=== PATIENT | male | born 1995 | race African-American/Black ===

== ENCOUNTER 2019-03-30 10:50 | Emergency (ER) | payer SELFPAY ==
[~2019-03-30] VITALS: Ht 175.3 cm; Wt 89.0 kg
[2019-03-30 14:22] VITALS: BP 120/83
== END 2019-03-30 14:24 | disposition home or self-care (01) ==
LOC: ER 10:50
DX: K64.4 Residual hemorrhoidal skin tags (principal)
CPT/HCPCS: 99282

== ENCOUNTER 2019-07-05 12:19 | Emergency (ER) | payer SELFPAY ==
[~2019-07-05] VITALS: Ht 175.3 cm; Wt 83.0 kg
[2019-07-05] MEDS ORDERED: IBUPROFEN 400MG TABLET PO ONE (15:15)
[2019-07-05] MEDS ORDERED: BACITRACIN ZINC OINT UDPKT TOP ONE (15:15)
[2019-07-05 15:17] VITALS: BP 120/62
== END 2019-07-06 03:17 | disposition home or self-care (01) ==
LOC: ER 12:19
DX: L60.0 Ingrowing nail (principal)
CPT/HCPCS: 11730; 99283

== ENCOUNTER 2019-08-13 22:25 | Emergency (ER) | payer MEDICAID, MEDICARE ==
[~2019-08-13] VITALS: Ht 175.3 cm; Wt 90.3 kg
[2019-08-13 22:49] VITALS: BP 115/76
[2019-08-14] MEDS ORDERED: ONDANSETRON 4MG ODT PO ONE (00:30)
== END 2019-08-14 00:56 | disposition home or self-care (01) ==
LOC: ER 22:25
DX: B34.9 Viral infection, unspecified (principal); F17.200 Nicotine dependence, unspecified, uncomplicated
CPT/HCPCS: 99283; Q0162